=== PATIENT | female | born 1940 | race Caucasian/White ===

== ENCOUNTER 2017-08-20 18:51 | Inpatient (IN) | payer MEDICARE ==
[2017-08-20 18:52] VITALS: BMI 21.7
[2017-08-20] MEDS ORDERED: Aspirin 325 mg EC Tablets PO STA (19:34)
--- NOTE | 2017-08-20 19:34 | C.PDOC ---
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 Patient reports it is non-radiating associated with shortness of breath and nausea. Patient denies vomiting, diaphoresis, palpitations, lower extremity swelling, or other complaints. Chief Complaint (Nursing): Chest Pain History Per: Patient History/Exam Limitations: no limitations Onset/Duration Of Symptoms: Hrs Current Symptoms Are (Timing): Still Present Associated Symptoms: Nausea Modifying Factors: None Exacerbating Factors: None Alleviating Factors: None Recent travel outside of the [place]: No Past Medical History Reviewed: Historical Data, Nursing Documentation, Vital Signs Vital Signs: Last Vital Signs Temp 98.6 F 08/20/17 23:00 Pulse 66 08/20/17 23:00 Resp 18 08/20/17 23:00 BP 134/54 L 08/20/17 23:00 Pulse Ox 100 08/20/17 23:00 - Medical History PMH: Arthritis, Diabetes (type 2), HTN, Pneumonia (on going pneumonia) Denies: Atrial Fibrillation (DENIES), Chronic Kidney Disease - [facility] Procedures EXCISION OF LEFT BREAST, OPEN APPROACH, DIAGNOSTIC (03/06/16) RESECTION OF LEFT BREAST, OPEN APPROACH (03/06/16) Family History: States: Unknown Family Hx - Social History Hx Tobacco Use: No Hx Alcohol Use: No Hx Substance Use: No - Immunization History Hx Tetanus Toxoid Vaccination: No Hx Influenza Vaccination: No Hx Pneumococcal Vaccination: No Review Of Systems Constitutional: Negative for: Fever Cardiovascular: Positive for: Chest Pain (mid-sternal). Negative for: Palpitations Respiratory: Positive for: Shortness of Breath Gastrointestinal: Positive for: Nausea. Negative for: Vomiting Genitourinary: Negative for: Frequency Musculoskeletal: Negative for: Neck Pain Neurological: Negative for: Weakness, Numbness Physical Exam - Physical Exam Appears: Well, Non-toxic, No Acute Distress Skin: Normal Color, Warm, Dry Head: Atraumatic, Normacephalic Eye(s): bilateral: Normal Inspection, PERRL, EOMI Oral Mucosa: Moist Throat: Normal, No Erythema, No Exudate Neck: Normal ROM, Supple Chest: No Tenderness Cardiovascular: Rhythm Regular, No Murmur Respiratory: No Decreased Breath Sounds, No Rales, No Rhonchi, No Wheezing Gastrointestinal/Abdominal: Bowel Sounds (active), Soft, No Tenderness, No Distention, No Guarding, No Rebound Extremity: Normal ROM, No Tenderness, No Pedal Edema, No Swelling Pulses: Left Dorsalis Pedis: Normal, Right Dorsalis Pedis: Normal Neurological/Psych: Oriented x3, Normal Speech, Normal Motor ED Course And Treatment - Laboratory Results Result Diagrams: 08/20/17 19:38 08/20/17 19:38 ECG: Interpreted By Me, Viewed By Me ECG Rhythm: Sinus Rhythm, Nonspecific Changes Rate From EC (LVH) O2 Sat by Pulse Oximetry: 99 (room air) Pulse Ox Interpretation: Normal Medical Decision Making Medical Decision Making: Impression: 76 y/o female who is febrile, c/o mid-sternal non-radiating chest pain since early today. Differential Diagnosis included but are not limited to: ACS vs. pneumonia vs. pulmonary embolism Plan: -- EKG -- CXR -- CT chest -- Aspirin, Nitoglycerin, and Morphine -- Reassess and disposition Progress Notes: CT Chest: IMPRESSION: 1. No definite CT evidence of pulmonary embolism. 2. Left chest wall lesion, indeterminate. Clinical correlation is needed. 3. Sclerotic lesions, indeterminate. Recommend bone scan. 4. Adrenal hypertrophy. Compare with prior examinations if available, otherwise consider MRI. 5. Incidental/non-acute findings are described above. Disposition - Disposition Disposition: HOSPITALIZED Disposition Time: 00:49 Condition: FAIR - Clinical Impression Clinical Impression: Chest pain - Scribe Statement The provider has reviewed the documentation as recorded by the Jeannette Alane Attestation: Gita Machado Attestation: All medical record entries made by the Ayushibcheryl were at my direction and personally dictated by me. I have reviewed the chart and agree that the record accurately reflects my personal performance of the history, physical exam, medical decision making, and the department course for this patient. I have also personally directed, reviewed, and agree with the discharge instructions and disposition.
[2017-08-20 19:43] LABS: BASO % 0.3 % (0.0-2.0); EOS % 0.2 % (0.0-4.0); HEMOGLOBIN 11.6 g/dL (11.0-16.0); LYMPH # 2.1 K/uL (1.0-4.3); LYMPH % 13.4 % (20.0-40.0); MEAN CELL VOLUME 89.1 fL (81.0-99.0); MEAN CORPUSCULAR HEMOGLOBIN 30.4 pg (27.0-31.0); MEAN CORPUSCULAR HGB CONC 34.1 g/dL (33.0-37.0); MEAN PLATELET VOLUME 7.2 fL (7.2-11.7); MONO # 1.7 K/uL (0.0-0.8); MONO % 10.7 % (0.0-10.0); NEUT # 12.1 K/uL (1.8-7.0); NEUT % 75.4 % (50.0-75.0); NRBC % 0.1 % (0.0-2.0); RBC 3.83 Mil/uL (3.80-5.20); RED CELL DISTRIBUTION WIDTH 12.3 % (11.5-14.5); WHITE BLOOD COUNT 16.1 K/uL (4.8-10.8)
[2017-08-20] MEDS ORDERED: Aspirin 325 mg EC Tablets PO ONE (19:47)
[2017-08-20] MEDS ORDERED: Morphine 4 MG/ML VIAL ONE (19:49)
[2017-08-20 19:56] LABS: INR 1.1
[2017-08-20 19:57] LABS: ALB/GLOB RATIO 0.9 (1.0-2.1); ALBUMIN 4.5 g/dL (3.5-5.0); ALT/SGPT 25 U/L (9-52); AST/SGOT 32 U/L (14-36); BLOOD UREA NITROGEN 11 mg/dL (7-17); CALCIUM 9.1 mg/dl (8.6-10.4); GFR AFRICAN-AMERICAN > 60; GFR NON-AFRICAN AMERICAN > 60
[2017-08-20 20:07] LABS: B-TYPE NATRIURETIC PEPTIDE 149 pg/mL (0-900)
[2017-08-20] MEDS ORDERED: DiphenhydrAMINE 50 mg/ml Inj IVP STA (20:14)
[2017-08-20] MEDS ORDERED: DiphenhydrAMINE 50 mg/ml Inj ONE (20:22)
[2017-08-20] MEDS ORDERED: Iodixanol 320 mg/ml 150 ml Bottle IV ONE (20:34)
--- NOTE | 2017-08-20 21:36 | CT ---
EXAM: CT Angiography Chest With Intravenous Contrast CLINICAL HISTORY: 76 years old, female; Signs and symptoms; Shortness of breath; Additional info: Chest pain TECHNIQUE: Axial computed tomographic angiography images of the chest with intravenous contrast using pulmonary embolism protocol. All CT scans at this facility use one or more dose reduction techniques, viz.: automated exposure control; ma/kV adjustment per patient size (including targeted exams where dose is matched to indication; i.e. head); or iterative reconstruction technique. MIP reconstructed images were created and reviewed. Coronal and sagittal reformatted images were created and reviewed. CONTRAST: 100 mL of [id number] administered intravenously. COMPARISON: No relevant prior studies available. FINDINGS: Limitations: Motion artifact - mild. Pulmonary arteries: No definite pulmonary embolism. Aorta: Mild atherosclerotic disease. No aneurysm. Lungs: Mild atelectasis/scarring. No consolidation. Pleural space: No significant effusion. No pneumothorax. Heart: [id number] cardiomegaly. No significant pericardial effusion. Mild coronary artery calcifications. Bones/joints: Sclerotic lesions within sternum, T5 vertebral body. No acute fracture. Soft tissues: LEFT mastectomy. 1.1 x 1.1 x 0.9 cm soft tissue lesion within left chest wall. Lymph nodes: No pathologically enlarged lymph nodes. Adrenals: Mild hypertrophy of adrenal glands, slightly nodular on left. IMPRESSION: 1. No definite CT evidence of pulmonary embolism. 2. Left chest wall lesion, indeterminate. Clinical correlation is needed. 3. Sclerotic lesions, indeterminate. Recommend bone scan. 4. Adrenal hypertrophy. Compare with prior examinations if available, otherwise consider MRI. 5. Incidental/non-acute findings are described above.
[2017-08-20] MEDS ORDERED: Oxycodone/Acetaminophen 5/325 mg Tab PO PRN (22:44)
[2017-08-20] MEDS ORDERED: Sodium Chloride 0.9% 1,000 ML ONE (23:31)
[2017-08-20] MEDS: Sodium Chloride 0.9% 1,000 ML IV SCH (23:33)
[2017-08-21 03:57] LABS: BASO % 0.2 % (0.0-2.0); HEMOGLOBIN 10.8 g/dL (11.0-16.0); LYMPH # 1.2 K/uL (1.0-4.3); LYMPH % 7.9 % (20.0-40.0); MEAN CELL VOLUME 90.1 fL (81.0-99.0); MEAN CORPUSCULAR HEMOGLOBIN 30.7 pg (27.0-31.0); MEAN CORPUSCULAR HGB CONC 34.1 g/dL (33.0-37.0); MEAN PLATELET VOLUME 7.3 fL (7.2-11.7); MONO # 0.3 K/uL (0.0-0.8); MONO % 1.8 % (0.0-10.0); NEUT # 13.9 K/uL (1.8-7.0); NEUT % 90.1 % (50.0-75.0); PLATELET COUNT 376 K/uL (130-400); RBC 3.52 Mil/uL (3.80-5.20); RED CELL DISTRIBUTION WIDTH 12.4 % (11.5-14.5); WHITE BLOOD COUNT 15.4 K/uL (4.8-10.8)
[2017-08-21 04:12] LABS: ALB/GLOB RATIO 0.9 (1.0-2.1); ALBUMIN 4.1 g/dL (3.5-5.0); ALT/SGPT 25 U/L (9-52); AST/SGOT 24 U/L (14-36); BLOOD UREA NITROGEN 15 mg/dL (7-17); CALCIUM 8.8 mg/dl (8.6-10.4); GFR AFRICAN-AMERICAN > 60; GFR NON-AFRICAN AMERICAN 54; HDL CHOLESTEROL 61 mg/dL (30-70)
[2017-08-21 04:20] LABS: LDL CHOLESTEROL < 30 mg/dL (0-129)
[2017-08-21 05:47] LABS: BANDS 2 % (0-2); LYMPHOCYTE 6 % (20-40); MONOCYTE 4 % (0-10); NEUTROPHIL 88 % (50-75); PLATELET ESTIMATE NORMAL (NORMAL); TOTAL CELLS COUNTED 100
[2017-08-21] MEDS: (Novolog) Insulin Aspart, Recombinant 100 u/ml 10 ml vial SC SCH ×4 (08:09→22:44)
[2017-08-21 08:12] LABS: URINE BILIRUBIN NEGATIVE (NEGATIVE); URINE BLOOD 1+ (NEGATIVE); URINE CLARITY Clear (Clear); URINE COLOR Yellow (YELLOW); URINE GLUCOSE (UA) 1+ mg/dL (Normal); URINE LEUKOCYTE ESTERASE NEG Leu/uL (Negative); URINE NITRATE NEGATIVE (NEGATIVE); URINE PROTEIN 2+ mg/dL (NEGATIVE); URINE UROBILINOGEN NORMAL mg/dL (0.2-1.0)
[2017-08-21] MEDS ORDERED: (Novolog) Insulin Aspart, Recombinant 100 u/ml 10 ml vial ONE ×2 (08:14→14:06)
--- NOTE | 2017-08-21 08:35 | RAD ---
PROCEDURE: CHEST RADIOGRAPH, 1 VIEW HISTORY: chest pain COMPARISON: Chest radiograph dated 04/12/2016. FINDINGS: LUNGS: Bibasilar scarring. Clear. PLEURA: No pneumothorax or pleural fluid seen. CARDIOVASCULAR: Atherosclerotic aortic calcifications. Cardiomediastinal silhouette stably enlarged. OSSEOUS STRUCTURES: Old left-sided rib fractures Unchanged. VISUALIZED UPPER ABDOMEN: Normal. OTHER FINDINGS: Left axillary surgical clips redemonstrated. IMPRESSION: No active disease.
[2017-08-21 08:45] LABS: OSMOLALITY,URINE 362 mosm/kg (300-1000)
[2017-08-21] MEDS: Enoxaparin 40 mg Syringe SC SCH (10:18)
[2017-08-21] MEDS: Sodium Chloride 0.9% 1,000 ML IV SCH (16:10)
--- NOTE | 2017-08-21 22:37 | CP.PCM.CON ---
History of Present Illness - History of Present Illness History of Present Illness: 76 year old female with a history of DM, HTN, HL, stage IV breast cancer (ER/PA positive, HER2 negative) with lymph node and bone metastasis dx 02/2016 s/p left sided mastectomy on hormonal therapy (anastrozole 1mg daily), admitted with chest pain. She notes to aching chest pain over her chest shortly after having a meal. The pain was not relieved with Tylenol and her family brought her to the hospital. In the hospital she was given Toradol and notes to resolution of her pain. A CT angio of the chest was negative for PE. Other findings included a 1cm chest wall lesion, sclerotic bone lesions, and adrenal gland thickening. She currently has no more chest pain and reports to feeling well. Past medical history: DM, HTN, HL, breast cancer Past surgical history: left sided mastectomy, detached retina repair Family history: Denies hematologic and oncologic problems Social history: Denies tobacco, alcohol, and illicit drug use. Allergies: NKDA Review of systems: All remaining review of systems including HEENT, cardiovacular, respiratory, gastrointestinal, genitourinary, musculoskeletal, dermatologic, neurologic, and psychiatric are negative unless mentioned in the HPI. Past Patient History - Infectious Disease Hx of Infectious Diseases: None - Tetanus Immunizations Tetanus Immunization: Unknown - Past Medical History & Family History Past Medical History?: Yes - Past Social History Smoking Status: Never Smoked - CARDIAC Hx Atrial Fibrillation: No (DENIES) Hx Hypertension: Yes - PULMONARY Hx Pneumonia: Yes (on going pneumonia) - NEUROLOGICAL Hx Neurological Disorder: No - HEENT Hx HEENT Problems: No Other/Comment: Left eye impairment - previous retina surgery in 2009 - RENAL Hx Chronic Kidney Disease: No - ENDOCRINE/METABOLIC Hx Endocrine Disorders: Yes Hx Diabetes Mellitus Type 2: Yes - HEMATOLOGICAL/ONCOLOGICAL Hx Blood Disorders: No Hx Cancer: Yes (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.) Hx Metastesis: Yes - INTEGUMENTARY Hx Dermatological Problems: No Hx Cellulitis: Yes (PECANCER SURGERY) - MUSCULOSKELETAL/RHEUMATOLOGICAL Hx Falls: No - GASTROINTESTINAL Hx Gastrointestinal Disorders: No - GENITOURINARY/GYNECOLOGICAL Hx Genitourinary Disorders: No - PSYCHIATRIC Hx Substance Use: No - SURGICAL HISTORY Hx Surgeries: Yes Hx Eye Surgery: Yes (Retina Surgery 2009) Hx Mastectomy: Yes (left breast a month ago [facility]) Other/Comment: eye surgery for retinal detachment - ANESTHESIA Hx Anesthesia: Yes Hx Anesthesia Reactions: No Hx Malignant Hyperthermia: No Meds Allergies/Adverse Reactions: Allergies Allergy/AdvReac Type Severity Reaction Status Date / Time oxycodone [From Percocet] Allergy RASH Verified 08/20/17 20:00 shellfish derived Allergy ANAPHYLAXIS Verified 08/20/17 18:57 - Medications Medications: Current Medications Amlodipine Besylate (Norvasc) 5 mg PO DAILY [facility] Last Admin: 08/21/17 10:19 Dose: 5 mg Docusate Sodium (Colace) 100 mg PO BID PRN PRN Reason: Constipation Enoxaparin Sodium (Lovenox) 40 mg SC DAILY [facility] Last Admin: 08/21/17 10:18 Dose: 40 mg Sodium Chloride (Sodium Chloride 0.9%) 1,000 mls @ 60 mls/hr IV .[id number] [facility] Last Admin: 08/21/17 16:10 Dose: 60 mls/hr Insulin Aspart (Novolog) 0 unit SC ACHS [facility] PRN Reason: Protocol Last Admin: 08/21/17 17:25 Dose: 1 unit Lisinopril (Zestril) 20 mg PO DAILY [facility] Last Admin: 08/21/17 10:19 Dose: 20 mg Metoprolol Tartrate (Lopressor) 25 mg PO DAILY [facility] Last Admin: 08/21/17 10:17 Dose: 25 mg Oxycodone/Acetaminophen (Percocet 5/325 Mg Tab) 1 tab PO Q4H PRN PRN Reason: Pain, moderate (4-7) Stop: 08/23/17 22:45 Rosuvastatin Calcium (Crestor) 5 mg PO [facility] Last Admin: 08/21/17 21:34 Dose: 5 mg Physical Exam - Head Exam Head Exam: ATRAUMATIC - Eye Exam Eye Exam: Normal appearance - ENT Exam ENT Exam: Mucous Membranes Dry - Respiratory Exam Respiratory Exam: NORMAL BREATHING PATTERN - Cardiovascular Exam Cardiovascular Exam: +S1, +S2 - GI/Abdominal Exam GI & Abdominal Exam: Normal Bowel Sounds - Extremities Exam Extremities exam: Positive for: normal inspection - Neurological Exam Neurological exam: Oriented x3 - Psychiatric Exam Psychiatric exam: Normal Affect, Normal Mood - Skin Skin Exam: Warm Results - Vital Signs Recent Vital Signs: Last Vital Signs Temp 98.2 F 08/21/17 19:58 Pulse 78 08/21/17 18:00 Resp 17 03/04/18 16:44 BP 151/76 H 08/21/17 16:44 Pulse Ox 99 08/21/17 16:44 - Labs Result Diagrams: 08/21/17 03:53 08/21/17 03:53 Labs: Laboratory Results - last 24 hr 08/21/17 08/21/17 08/21/17 03:53 03:53 03:53 WBC RBC Hgb Hct MCV MCH MCHC RDW Plt Count MPV Neut % (Auto) Lymph % (Auto) [place] % (Auto) Eos % (Auto) Baso % (Auto) Neut # (Auto) Lymph # (Auto) [place] # (Auto) Eos # (Auto) Baso # (Auto) Neutrophils % (Manual) Band Neutrophils % Lymphocytes % (Manual) Monocytes % (Manual) Platelet Estimate Sodium 124 L Potassium 4.4 Chloride 88 L Carbon Dioxide 25 Anion Gap 16 BUN 15 Creatinine 1.0 Est GFR ( Amer) > 60 Est GFR (Non-Af Amer) 54 POC Glucose (mg/dL) Random Glucose 281 H Hemoglobin A1c 7.1 H Serum Osmolality 272 Calcium 8.8 Total Bilirubin 0.9 AST 24 ALT 25 Alkaline Phosphatase 93 Troponin I < 0.0120 Total Protein 8.8 H Albumin 4.1 Globulin 4.7 H Albumin/Globulin Ratio 0.9 L Triglycerides 55 D Cholesterol 136 LDL Cholesterol Direct < 30 HDL Cholesterol 61 Urine Color Urine Clarity Urine pH Ur Specific [place] Urine Protein Urine Glucose (UA) Urine Ketones Urine Blood Urine Nitrate Urine Bilirubin Urine Urobilinogen Ur Leukocyte Esterase Urine WBC (Auto) Urine RBC (Auto) Urine Osmolality Ur Random Sodium 08/21/17 08/21/17 08/21/17 03:53 07:51 07:51 WBC 15.4 H RBC 3.52 L Hgb 10.8 L Hct 31.7 L MCV 90.1 MCH 30.7 MCHC 34.1 RDW 12.4 Plt Count 376 MPV 7.3 Neut % (Auto) 90.1 H Lymph % (Auto) 7.9 L [place] % (Auto) 1.8 Eos % (Auto) 0.0 Baso % (Auto) 0.2 Neut # (Auto) 13.9 H Lymph # (Auto) 1.2 [place] # (Auto) 0.3 Eos # (Auto) 0.0 Baso # (Auto) 0.0 Neutrophils % (Manual) 88 H Band Neutrophils % 2 Lymphocytes % (Manual) 6 L Monocytes % (Manual) 4 Platelet Estimate Normal Sodium Potassium Chloride Carbon Dioxide Anion Gap BUN Creatinine Est GFR ( Amer) Est GFR (Non-Af Amer) POC Glucose (mg/dL) Random Glucose Hemoglobin A1c Serum Osmolality Calcium Total Bilirubin AST ALT Alkaline Phosphatase Troponin I Total Protein Albumin Globulin Albumin/Globulin Ratio Triglycerides Cholesterol LDL Cholesterol Direct HDL Cholesterol Urine Color Yellow Urine Clarity Clear Urine pH 5.0 Ur Specific [place] 1.045 H Urine Protein 2+ H Urine Glucose (UA) 1+ Urine Ketones Negative Urine Blood 1+ H Urine Nitrate Negative Urine Bilirubin Negative Urine Urobilinogen Normal Ur Leukocyte Esterase Neg Urine WBC (Auto) 1 Urine RBC (Auto) 2 Urine Osmolality 362 Ur Random Sodium 15 08/21/17 08/21/17 08/21/17 08:02 12:05 17:18 WBC RBC Hgb Hct MCV MCH MCHC RDW Plt Count MPV Neut % (Auto) Lymph % (Auto) [place] % (Auto) Eos % (Auto) Baso % (Auto) Neut # (Auto) Lymph # (Auto) [place] # (Auto) Eos # (Auto) Baso # (Auto) Neutrophils % (Manual) Band Neutrophils % Lymphocytes % (Manual) Monocytes % (Manual) Platelet Estimate Sodium Potassium Chloride Carbon Dioxide Anion Gap BUN Creatinine Est GFR ( Amer) Est GFR (Non-Af Amer) POC Glucose (mg/dL) 231 H 261 H 194 H Random Glucose Hemoglobin A1c Serum Osmolality Calcium Total Bilirubin AST ALT Alkaline Phosphatase Troponin I Total Protein Albumin Globulin Albumin/Globulin Ratio Triglycerides Cholesterol LDL Cholesterol Direct HDL Cholesterol Urine Color Urine Clarity Urine pH Ur Specific [place] Urine Protein Urine Glucose (UA) Urine Ketones Urine Blood Urine Nitrate Urine Bilirubin Urine Urobilinogen Ur Leukocyte Esterase Urine WBC (Auto) Urine RBC (Auto) Urine Osmolality Ur Random Sodium 08/21/17 21:38 WBC RBC Hgb Hct MCV MCH MCHC RDW Plt Count MPV Neut % (Auto) Lymph % (Auto) [place] % (Auto) Eos % (Auto) Baso % (Auto) Neut # (Auto) Lymph # (Auto) [place] # (Auto) Eos # (Auto) Baso # (Auto) Neutrophils % (Manual) Band Neutrophils % Lymphocytes % (Manual) Monocytes % (Manual) Platelet Estimate Sodium Potassium Chloride Carbon Dioxide Anion Gap BUN Creatinine Est GFR ( Amer) Est GFR (Non-Af Amer) POC Glucose (mg/dL) 186 H Random Glucose Hemoglobin A1c Serum Osmolality Calcium Total Bilirubin AST ALT Alkaline Phosphatase Troponin I Total Protein Albumin Globulin Albumin/Globulin Ratio Triglycerides Cholesterol LDL Cholesterol Direct HDL Cholesterol Urine Color Urine Clarity Urine pH Ur Specific [place] Urine Protein Urine Glucose (UA) Urine Ketones Urine Blood Urine Nitrate Urine Bilirubin Urine Urobilinogen Ur Leukocyte Esterase Urine WBC (Auto) Urine RBC (Auto) Urine Osmolality Ur Random Sodium Assessment & Plan (1) Anemia Assessment and Plan: Chronic disease from malignancy no transfusion indication Status: Acute Priority: Medium (2) Breast cancer Assessment and Plan: stage IV; ER/PA positive, HER2 negative disease controlled on aromatase inhibitor if pain recurrs, will order outpatient PET CT scan to evaluate bone metastasis outpatient anastrozole 1mg daily and f/u Status: Acute Priority: High (3) Leukocytosis Assessment and Plan: to be seen by ID Thank you for this interesting consult. Status: Acute
--- NOTE | 2017-08-22 01:20 | CP.PCM.HP ---
History of Present Illness - History of Present Illness History of Present Illness: 76 years old female complaining of a sudden onset of a retrosternal chest pain, after eating lunch. She denies any SOB, nausea. The chest pain resolved after receiving Toradol. She is known to have a metastatic left breast cancer, currently on chemotherapy. She also has a NIDDM, a hypertension. Serum TNI was negative. ECG revealed an RSR with non specific ST-T change. CTA of the chest did not show any pulmonary embolism, but coronary calcifications, a 1 cm left chest wall mass. WBC was elevated with diffential shift to the left. Her serum Na+ was 124. Her UA did not reveal any UTI. Present on Admission - Present on Admission Any Indicators Present on Admission: No Review of Systems - Cardiovascular Cardiovascular: Chest Pain at Rest Past Patient History - Infectious Disease Hx of Infectious Diseases: None - Tetanus Immunizations Tetanus Immunization: Unknown - Past Medical History & Family History Past Medical History?: Yes - Past Social History Smoking Status: Never Smoked Alcohol: None Drugs: Denies Home Situation {Lives}: With Family Domestic Violence: Negative - CARDIAC Hx Atrial Fibrillation: No (DENIES) Hx Hypercholesterolemia: Yes Hx Hypertension: Yes - PULMONARY Hx Pneumonia: Yes (on going pneumonia) - NEUROLOGICAL Hx Neurological Disorder: No - HEENT Hx HEENT Problems: No Other/Comment: Left eye impairment - previous retina surgery in 2009 - RENAL Hx Chronic Kidney Disease: No - ENDOCRINE/METABOLIC Hx Endocrine Disorders: Yes Hx Diabetes Mellitus Type 2: Yes - HEMATOLOGICAL/ONCOLOGICAL Hx Blood Disorders: No Hx Cancer: Yes (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.) Hx Metastesis: Yes - INTEGUMENTARY Hx Dermatological Problems: No Hx Cellulitis: Yes (PECANCER SURGERY) - MUSCULOSKELETAL/RHEUMATOLOGICAL Hx Falls: No - GASTROINTESTINAL Hx Gastrointestinal Disorders: No - GENITOURINARY/GYNECOLOGICAL Hx Genitourinary Disorders: No - PSYCHIATRIC Hx Substance Use: No - SURGICAL HISTORY Hx Surgeries: Yes Hx Eye Surgery: Yes (Retina Surgery 2009) Hx Mastectomy: Yes (left breast in 2016 at [facility]) Other/Comment: eye surgery for retinal detachment - ANESTHESIA Hx Anesthesia: Yes Hx Anesthesia Reactions: No Hx Malignant Hyperthermia: No Meds Allergies/Adverse Reactions: Allergies Allergy/AdvReac Type Severity Reaction Status Date / Time oxycodone [From Percocet] Allergy RASH Verified 08/20/17 20:00 shellfish derived Allergy ANAPHYLAXIS Verified 08/20/17 18:57 Physical Exam - Constitutional Appears: No Acute Distress - Head Exam Head Exam: NORMAL INSPECTION - Eye Exam Eye Exam: Normal appearance - ENT Exam ENT Exam: Normal Exam - Neck Exam Neck exam: Positive for: Normal Inspection - Respiratory Exam Respiratory Exam: Clear to Auscultation Bilateral, NORMAL BREATHING PATTERN - Cardiovascular Exam Cardiovascular Exam: REGULAR RHYTHM - GI/Abdominal Exam GI & Abdominal Exam: Normal Bowel Sounds, Soft - Rectal Exam Rectal Exam: Deferred - Extremities Exam Extremities exam: Positive for: normal inspection - Back Exam Back exam: NORMAL INSPECTION - Neurological Exam Neurological exam: Alert, Oriented x3 - Psychiatric Exam Psychiatric exam: Anxious - Skin Skin Exam: Dry, Intact, Normal Color Results - Vital Signs Recent Vital Signs: Last Vital Signs Temp 98 F 08/21/17 23:59 Pulse 87 08/22/17 00:24 Resp 13 08/22/17 00:00 BP 135/61 08/21/17 23:57 Pulse Ox 98 08/22/17 00:00 - Labs Result Diagrams: 08/21/17 03:53 08/21/17 03:53 Labs: Laboratory Results - last 24 hr 08/21/17 08/21/17 08/21/17 03:53 03:53 03:53 WBC RBC Hgb Hct MCV MCH MCHC RDW Plt Count MPV Neut % (Auto) Lymph % (Auto) [place] % (Auto) Eos % (Auto) Baso % (Auto) Neut # (Auto) Lymph # (Auto) [place] # (Auto) Eos # (Auto) Baso # (Auto) Neutrophils % (Manual) Band Neutrophils % Lymphocytes % (Manual) Monocytes % (Manual) Platelet Estimate Sodium 124 L Potassium 4.4 Chloride 88 L Carbon Dioxide 25 Anion Gap 16 BUN 15 Creatinine 1.0 Est GFR ( Amer) > 60 Est GFR (Non-Af Amer) 54 POC Glucose (mg/dL) Random Glucose 281 H Hemoglobin A1c 7.1 H Serum Osmolality 272 Calcium 8.8 Total Bilirubin 0.9 AST 24 ALT 25 Alkaline Phosphatase 93 Troponin I < 0.0120 Total Protein 8.8 H Albumin 4.1 Globulin 4.7 H Albumin/Globulin Ratio 0.9 L Triglycerides 55 D Cholesterol 136 LDL Cholesterol Direct < 30 HDL Cholesterol 61 Urine Color Urine Clarity Urine pH Ur Specific [place] Urine Protein Urine Glucose (UA) Urine Ketones Urine Blood Urine Nitrate Urine Bilirubin Urine Urobilinogen Ur Leukocyte Esterase Urine WBC (Auto) Urine RBC (Auto) Urine Osmolality Ur Random Sodium 08/21/17 08/21/17 08/21/17 03:53 07:51 07:51 WBC 15.4 H RBC 3.52 L Hgb 10.8 L Hct 31.7 L MCV 90.1 MCH 30.7 MCHC 34.1 RDW 12.4 Plt Count 376 MPV 7.3 Neut % (Auto) 90.1 H Lymph % (Auto) 7.9 L [place] % (Auto) 1.8 Eos % (Auto) 0.0 Baso % (Auto) 0.2 Neut # (Auto) 13.9 H Lymph # (Auto) 1.2 [place] # (Auto) 0.3 Eos # (Auto) 0.0 Baso # (Auto) 0.0 Neutrophils % (Manual) 88 H Band Neutrophils % 2 Lymphocytes % (Manual) 6 L Monocytes % (Manual) 4 Platelet Estimate Normal Sodium Potassium Chloride Carbon Dioxide Anion Gap BUN Creatinine Est GFR ( Amer) Est GFR (Non-Af Amer) POC Glucose (mg/dL) Random Glucose Hemoglobin A1c Serum Osmolality Calcium Total Bilirubin AST ALT Alkaline Phosphatase Troponin I Total Protein Albumin Globulin Albumin/Globulin Ratio Triglycerides Cholesterol LDL Cholesterol Direct HDL Cholesterol Urine Color Yellow Urine Clarity Clear Urine pH 5.0 Ur Specific [place] 1.045 H Urine Protein 2+ H Urine Glucose (UA) 1+ Urine Ketones Negative Urine Blood 1+ H Urine Nitrate Negative Urine Bilirubin Negative Urine Urobilinogen Normal Ur Leukocyte Esterase Neg Urine WBC (Auto) 1 Urine RBC (Auto) 2 Urine Osmolality 362 Ur Random Sodium 15 08/21/17 08/21/17 08/21/17 08:02 12:05 17:18 WBC RBC Hgb Hct MCV MCH MCHC RDW Plt Count MPV Neut % (Auto) Lymph % (Auto) [place] % (Auto) Eos % (Auto) Baso % (Auto) Neut # (Auto) Lymph # (Auto) [place] # (Auto) Eos # (Auto) Baso # (Auto) Neutrophils % (Manual) Band Neutrophils % Lymphocytes % (Manual) Monocytes % (Manual) Platelet Estimate Sodium Potassium Chloride Carbon Dioxide Anion Gap BUN Creatinine Est GFR ( Amer) Est GFR (Non-Af Amer) POC Glucose (mg/dL) 231 H 261 H 194 H Random Glucose Hemoglobin A1c Serum Osmolality Calcium Total Bilirubin AST ALT Alkaline Phosphatase Troponin I Total Protein Albumin Globulin Albumin/Globulin Ratio Triglycerides Cholesterol LDL Cholesterol Direct HDL Cholesterol Urine Color Urine Clarity Urine pH Ur Specific [place] Urine Protein Urine Glucose (UA) Urine Ketones Urine Blood Urine Nitrate Urine Bilirubin Urine Urobilinogen Ur Leukocyte Esterase Urine WBC (Auto) Urine RBC (Auto) Urine Osmolality Ur Random Sodium 08/21/17 21:38 WBC RBC Hgb Hct MCV MCH MCHC RDW Plt Count MPV Neut % (Auto) Lymph % (Auto) [place] % (Auto) Eos % (Auto) Baso % (Auto) Neut # (Auto) Lymph # (Auto) [place] # (Auto) Eos # (Auto) Baso # (Auto) Neutrophils % (Manual) Band Neutrophils % Lymphocytes % (Manual) Monocytes % (Manual) Platelet Estimate Sodium Potassium Chloride Carbon Dioxide Anion Gap BUN Creatinine Est GFR ( Amer) Est GFR (Non-Af Amer) POC Glucose (mg/dL) 186 H Random Glucose Hemoglobin A1c Serum Osmolality Calcium Total Bilirubin AST ALT Alkaline Phosphatase Troponin I Total Protein Albumin Globulin Albumin/Globulin Ratio Triglycerides Cholesterol LDL Cholesterol Direct HDL Cholesterol Urine Color Urine Clarity Urine pH Ur Specific [place] Urine Protein Urine Glucose (UA) Urine Ketones Urine Blood Urine Nitrate Urine Bilirubin Urine Urobilinogen Ur Leukocyte Esterase Urine WBC (Auto) Urine RBC (Auto) Urine Osmolality Ur Random Sodium Assessment & Plan (1) Chest pain Assessment and Plan: R/O ACS. To monitor on telemetry with serial ECG's and cardiac enzymes. Will also get an Echocardiogram. Status: Acute (2) Leukocytosis Assessment and Plan: R/o infection. To get ID evaluation, blood and urine cultures. Status: Acute (3) Hyponatremia Assessment and Plan: r/o SIADH. To get urinr Na+, serum and urine osmolality. Start NS IV. Status: Acute (4) Chest wall mass Assessment and Plan: R/o left breast cancer metastasis. To ask Dr Conroy to evaluate. Status: Acute Decision To Admit - Pt Status Changed To: Hospital Disposition Of: Inpatient - Admit Certification Admit to Inpatient:: After my assessment, the patient will require hospitalization for at least two midnights. This is because of the severity of symptoms shown, intensity of services needed, and/or the medical risk in this patient being treated as an outpatient. - InPatient: Physician Admission Certification:: After my assessments, the patient requires hospitalization for at least 2 midnights. - . Bed Request Type: Telemetry Admitting Physician: Devan Meneses
[2017-08-22 03:08] LABS: URINE BILIRUBIN NEGATIVE (NEGATIVE); URINE BLOOD 1+ (NEGATIVE); URINE CLARITY Clear (Clear); URINE COLOR Colorless (YELLOW); URINE GLUCOSE (UA) 1+ mg/dL (Normal); URINE LEUKOCYTE ESTERASE NEG Leu/uL (Negative); URINE NITRATE NEGATIVE (NEGATIVE); URINE PROTEIN NEGATIVE (NEGATIVE); URINE UROBILINOGEN NORMAL mg/dL (0.2-1.0)
[2017-08-22 06:08] LABS: BASO # 0.1 K/uL (0.0-0.2); BASO % 0.3 % (0.0-2.0); HEMOGLOBIN 10.3 g/dL (11.0-16.0); LYMPH # 2.8 K/uL (1.0-4.3); LYMPH % 14.6 % (20.0-40.0); MEAN CELL VOLUME 89.7 fL (81.0-99.0); MEAN CORPUSCULAR HEMOGLOBIN 31.1 pg (27.0-31.0); MEAN CORPUSCULAR HGB CONC 34.7 g/dL (33.0-37.0); MEAN PLATELET VOLUME 7.9 fL (7.2-11.7); MONO # 1.9 K/uL (0.0-0.8); MONO % 10.1 % (0.0-10.0); NEUT # 14.3 K/uL (1.8-7.0); PLATELET COUNT 385 K/uL (130-400); RBC 3.32 Mil/uL (3.80-5.20); RED CELL DISTRIBUTION WIDTH 12.2 % (11.5-14.5); WHITE BLOOD COUNT 19.1 K/uL (4.8-10.8)
[2017-08-22 06:25] LABS: ALB/GLOB RATIO 0.9 (1.0-2.1); ALBUMIN 3.8 g/dL (3.5-5.0); ALT/SGPT 23 U/L (9-52); AST/SGOT 16 U/L (14-36); BLOOD UREA NITROGEN 19 mg/dL (7-17); CALCIUM 8.8 mg/dl (8.6-10.4); GFR AFRICAN-AMERICAN > 60; GFR NON-AFRICAN AMERICAN > 60
[2017-08-22] MEDS: (Novolog) Insulin Aspart, Recombinant 100 u/ml 10 ml vial SC SCH ×4 (07:42→22:00)
[2017-08-22 08:24] LABS: LARGE PLATELETS PRESENT; LYMPHOCYTE 13 % (20-40); MONOCYTE 10 % (0-10); NEUTROPHIL 77 % (50-75); PLATELET ESTIMATE NORMAL (NORMAL); TOTAL CELLS COUNTED 100
[2017-08-22] MEDS: Sodium Chloride 0.9% 1,000 ML IV SCH (09:45)
[2017-08-22] MEDS: Enoxaparin 40 mg Syringe SC SCH (09:49)
--- NOTE | 2017-08-22 11:09 | CP.PCM.CON ---
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 She notes to aching chest pain over her chest shortly after having a meal. The pain was not relieved with Tylenol and her family brought her to the hospital. In the hospital she was given Toradol and notes to resolution of her pain. A CT angio of the chest was negative for PE. Other findings included a 1cm chest wall lesion, sclerotic bone lesions, and adrenal gland thickening. She currently has no more chest pain and reports to feeling well. Na initially 126 [address]I ruled out and CT chest negative for PE Initial hyponatremia treated with NS fluids; now [id number] Past medical history: DM, HTN, HL, breast cancer Past surgical history: left sided mastectomy, detached retina repair Family history: no CKD Social history: Denies tobacco, alcohol, and illicit drug use. Allergies: NKDA Review of systems: All remaining review of systems including HEENT, cardiovacular, respiratory, gastrointestinal, genitourinary, musculoskeletal, dermatologic, neurologic, and psychiatric are negative unless mentioned in the HPI. Review of Systems - Review of Systems All systems: reviewed and no additional remarkable complaints except - Cardiovascular Cardiovascular: Chest Pain at Rest - Gastrointestinal Gastrointestinal: Abdominal Pain, Dyspepsia Past Patient History - Infectious Disease Hx of Infectious Diseases: None - Tetanus Immunizations Tetanus Immunization: Unknown - Past Medical History & Family History Past Medical History?: Yes Past Family History: Reviewed and not pertinent - Past Social History Smoking Status: Never Smoked Chewing Tobacco Use: No Cigar Use: No Alcohol: None Drugs: Denies Home Situation {Lives}: With Family Domestic Violence: Negative - CARDIAC Hx Atrial Fibrillation: No (DENIES) Hx Hypercholesterolemia: Yes Hx Hypertension: Yes - PULMONARY Hx Pneumonia: Yes (on going pneumonia) - NEUROLOGICAL Hx Neurological Disorder: No - HEENT Hx HEENT Problems: No Other/Comment: Left eye impairment - previous retina surgery in 2009 - RENAL Hx Chronic Kidney Disease: No - ENDOCRINE/METABOLIC Hx Endocrine Disorders: Yes Hx Diabetes Mellitus Type 2: Yes - HEMATOLOGICAL/ONCOLOGICAL Hx Blood Disorders: No Hx Cancer: Yes (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.) Hx Metastesis: Yes - INTEGUMENTARY Hx Dermatological Problems: No Hx Cellulitis: Yes (PECANCER SURGERY) - MUSCULOSKELETAL/RHEUMATOLOGICAL Hx Falls: No - GASTROINTESTINAL Hx Gastrointestinal Disorders: No - GENITOURINARY/GYNECOLOGICAL Hx Genitourinary Disorders: No - PSYCHIATRIC Hx Substance Use: No - SURGICAL HISTORY Hx Surgeries: Yes Hx Eye Surgery: Yes (Retina Surgery 2009) Hx Mastectomy: Yes (left breast in 2016 at [facility]) Other/Comment: eye surgery for retinal detachment - ANESTHESIA Hx Anesthesia: Yes Hx Anesthesia Reactions: No Hx Malignant Hyperthermia: No Meds Allergies/Adverse Reactions: Allergies Allergy/AdvReac Type Severity Reaction Status Date / Time oxycodone [From Percocet] Allergy RASH Verified 08/20/17 20:00 shellfish derived Allergy ANAPHYLAXIS Verified 08/20/17 18:57 - Medications Medications: Current Medications Amlodipine Besylate (Norvasc) 5 mg PO DAILY [facility] Last Admin: 08/22/17 09:44 Dose: 5 mg Docusate Sodium (Colace) 100 mg PO BID PRN PRN Reason: Constipation Enoxaparin Sodium (Lovenox) 40 mg SC DAILY [facility] Last Admin: 08/22/17 09:49 Dose: Not Given Sodium Chloride (Sodium Chloride 0.9%) 1,000 mls @ 60 mls/hr IV .[id number] [facility] Last Admin: 08/22/17 09:45 Dose: 60 mls/hr Insulin Aspart (Novolog) 0 unit SC ACHS [facility] PRN Reason: Protocol Last Admin: 08/22/17 07:42 Dose: Not Given Lisinopril (Zestril) 20 mg PO DAILY [facility] Last Admin: 08/22/17 09:45 Dose: 20 mg Metoprolol Tartrate (Lopressor) 25 mg PO DAILY [facility] Last Admin: 08/22/17 09:43 Dose: 25 mg Oxycodone/Acetaminophen (Percocet 5/325 Mg Tab) 1 tab PO Q4H PRN PRN Reason: Pain, moderate (4-7) Stop: 08/23/17 22:45 Rosuvastatin Calcium (Crestor) 5 mg PO [facility] Last Admin: 08/21/17 21:34 Dose: 5 mg Physical Exam - Constitutional Appears: Well, Non-toxic, No Acute Distress - Head Exam Head Exam: ATRAUMATIC, NORMAL INSPECTION - Eye Exam Eye Exam: EOMI, Normal appearance - Neck Exam Neck exam: Positive for: Normal Inspection. Negative for: Tenderness - Respiratory Exam Respiratory Exam: Clear to Auscultation Bilateral, NORMAL BREATHING PATTERN - Cardiovascular Exam Cardiovascular Exam: REGULAR RHYTHM, +S1 - GI/Abdominal Exam GI & Abdominal Exam: Soft. absent: Tenderness - Extremities Exam Extremities exam: Positive for: normal inspection. Negative for: tenderness - Neurological Exam Neurological exam: CN II-XII Intact, Oriented x3 - Skin Skin Exam: Dry, Warm Results - Vital Signs Recent Vital Signs: Last Vital Signs Temp 97.3 F L 08/22/17 07:43 Pulse 72 08/22/17 07:45 Resp 15 08/22/17 07:45 BP 152/101 H 08/22/17 09:43 Pulse Ox 97 08/22/17 07:45 - Labs Result Diagrams: 08/22/17 06:02 08/22/17 06:02 Labs: Laboratory Results - last 24 hr 08/21/17 08/21/17 08/21/17 12:05 17:18 20:59 WBC RBC Hgb Hct MCV MCH MCHC RDW Plt Count MPV Neut % (Auto) Lymph % (Auto) [place] % (Auto) Eos % (Auto) Baso % (Auto) Neut # (Auto) Lymph # (Auto) [place] # (Auto) Eos # (Auto) Baso # (Auto) Neutrophils % (Manual) Lymphocytes % (Manual) Monocytes % (Manual) Platelet Estimate Large Platelets ESR Sodium Potassium Chloride Carbon Dioxide Anion Gap BUN Creatinine Est GFR ( Amer) Est GFR (Non-Af Amer) POC Glucose (mg/dL) 261 H 194 H Random Glucose Hemoglobin A1c Calcium Total Bilirubin AST ALT Alkaline Phosphatase C-React Prot High Sens Total Protein Albumin Globulin Albumin/Globulin Ratio Urine Color Colorless Urine Clarity Clear Urine pH 6.0 Ur Specific Max 1.004 Urine Protein Negative Urine Glucose (UA) 1+ Urine Ketones Negative Urine Blood 1+ H Urine Nitrate Negative Urine Bilirubin Negative Urine Urobilinogen Normal Ur Leukocyte Esterase Neg Urine WBC (Auto) 1 Urine RBC (Auto) 1 08/21/17 08/22/17 08/22/17 21:38 06:02 06:02 WBC 19.1 H RBC 3.32 L Hgb 10.3 L Hct 29.8 L MCV 89.7 MCH 31.1 H MCHC 34.7 RDW 12.2 Plt Count 385 MPV 7.9 Neut % (Auto) 75.0 Lymph % (Auto) 14.6 L [place] % (Auto) 10.1 H Eos % (Auto) 0.0 Baso % (Auto) 0.3 Neut # (Auto) 14.3 H Lymph # (Auto) 2.8 [place] # (Auto) 1.9 H Eos # (Auto) 0.0 Baso # (Auto) 0.1 Neutrophils % (Manual) 77 H Lymphocytes % (Manual) 13 L Monocytes % (Manual) 10 Platelet Estimate Normal Large Platelets Present ESR 111 H Sodium 139 Potassium 3.8 Chloride 99 Carbon Dioxide 26 Anion Gap 18 BUN 19 H Creatinine 0.9 Est GFR ( Amer) > 60 Est GFR (Non-Af Amer) > 60 POC Glucose (mg/dL) 186 H Random Glucose 135 H Hemoglobin A1c Calcium 8.8 Total Bilirubin 0.2 AST 16 ALT 23 Alkaline Phosphatase 77 C-React Prot High Sens Total Protein 7.8 Albumin 3.8 Globulin 4.0 H Albumin/Globulin Ratio 0.9 L Urine Color Urine Clarity Urine pH Ur Specific Max Urine Protein Urine Glucose (UA) Urine Ketones Urine Blood Urine Nitrate Urine Bilirubin Urine Urobilinogen Ur Leukocyte Esterase Urine WBC (Auto) Urine RBC (Auto) 08/22/17 08/22/17 08/22/17 06:02 06:02 07:38 WBC RBC Hgb Hct MCV MCH MCHC RDW Plt Count MPV Neut % (Auto) Lymph % (Auto) [place] % (Auto) Eos % (Auto) Baso % (Auto) Neut # (Auto) Lymph # (Auto) [place] # (Auto) Eos # (Auto) Baso # (Auto) Neutrophils % (Manual) Lymphocytes % (Manual) Monocytes % (Manual) Platelet Estimate Large Platelets ESR Sodium Potassium Chloride Carbon Dioxide Anion Gap BUN Creatinine Est GFR ( Amer) Est GFR (Non-Af Amer) POC Glucose (mg/dL) 137 H Random Glucose Hemoglobin A1c 7.1 H Calcium Total Bilirubin AST ALT Alkaline Phosphatase C-React Prot High Sens > 15.00 H Total Protein Albumin Globulin Albumin/Globulin Ratio Urine Color Urine Clarity Urine pH Ur Specific Max Urine Protein Urine Glucose (UA) Urine Ketones Urine Blood Urine Nitrate Urine Bilirubin Urine Urobilinogen Ur Leukocyte Esterase Urine WBC (Auto) Urine RBC (Auto) Assessment & Plan (1) SIADH (syndrome of inappropriate ADH production) Status: Acute (2) Chest pain at rest Status: Acute (3) Hyponatremia Status: Acute - Assessment and Plan (Free Text) Assessment: SIADH likely even though urine na only minimally elevated Hyponatremia corrected with NS fluids Plan: [place] oral fluid restriction Recheck urine parameters and uric acid level Can stop NS fluids now
[2017-08-22 17:48] LABS: OSMOLALITY,URINE 346 mosm/kg (300-1000)
--- NOTE | 2017-08-22 18:08 | CP.PCM.CON ---
History of Present Illness - History of Present Illness History of Present Illness: INFECTIOUS DISEASE CONSULATION JOSE NIEVES MD, FACP 6T [id number] 08/22/2017 CHART REVIEWED PT EXAMINED CASE DISCUSSED 76 year old female with a history of DM, HTN, HL, stage IV breast cancer with lymph node and bone metastasis dx 02/2016 s/p left sided mastectomy on hormonal therapy (anastrozole 1mg daily), admitted with chest pain. She notes to aching chest pain over her chest shortly after having a meal. The pain was not relieved with Tylenol and her family brought her to the hospital. In the hospital she was given Toradol and notes to resolution of her pain. A CT angio of the chest was negative for PE. Other findings included a 1cm chest wall lesion, sclerotic bone lesions, and adrenal gland thickening. She currently has no more chest pain and reports to feeling well. Na initially 126 AN INFECTIOUS DISEASE CONSULTATION WAS REQUESTED BECAUSE OF PROGRESSIVEW ELEVATIONS OF WBC-W/U ON GOING AMI ruled out and CT chest negative for PE Initial hyponatremia treated with NS fluids; now Kl=[phone] Past medical history: DM, HTN, HL, breast cancer 02/2016 Past surgical history: left sided mastectomy, detached retina repair Family history: no CKD Social history: Denies tobacco, alcohol, and illicit drug use. Allergies: NKDA Review of systems: All remaining review of systems including HEENT, cardiovacular, respiratory, gastrointestinal, genitourinary, musculoskeletal, dermatologic, neurologic, and psychiatric are negative unless mentioned in the HPI. VS: AWAKE AND ALERT ANXIOUS OVER HER CONDITION LUNGS CLEAR COR RR CHEST WALL LESION NOTED AND WORTH TAKING INTO CONSIDERATION ABD SOFT EXT THIN FRAGILE IMPRESSION: OCCULT INFECTION- CONSIDER STARTING TEFLARO INVIEW OF HER PROGRESSIVE WBC AND CHEST WALL ISSUE IF STABLE CONSIDER HOME TO [place], IF SHE RESPPONDS, SHE DOESNT WANT TO STAY. LET HER FOLLOW UP WITH ME MEDICALLY JOSE NIEVES MD, FACP INFECTIOUS DISEASE [employer]RA[employer]ED [employer] Past Patient History - Infectious Disease Hx of Infectious Diseases: None - Tetanus Immunizations Tetanus Immunization: Unknown - Past Medical History & Family History Past Medical History?: Yes Past Family History: Reviewed and not pertinent - Past Social History Smoking Status: Never Smoked Chewing Tobacco Use: No Cigar Use: No Alcohol: None Drugs: Denies Home Situation {Lives}: With Family Domestic Violence: Negative - CARDIAC Hx Atrial Fibrillation: No (DENIES) Hx Hypercholesterolemia: Yes Hx Hypertension: Yes - PULMONARY Hx Pneumonia: Yes (on going pneumonia) - NEUROLOGICAL Hx Neurological Disorder: No - HEENT Hx HEENT Problems: No Other/Comment: Left eye impairment - previous retina surgery in 2009 - RENAL Hx Chronic Kidney Disease: No - ENDOCRINE/METABOLIC Hx Endocrine Disorders: Yes Hx Diabetes Mellitus Type 2: Yes - HEMATOLOGICAL/ONCOLOGICAL Hx Blood Disorders: No Hx Cancer: Yes (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.) Hx Metastesis: Yes - INTEGUMENTARY Hx Dermatological Problems: No Hx Cellulitis: Yes (PECANCER SURGERY) - MUSCULOSKELETAL/RHEUMATOLOGICAL Hx Falls: No - GASTROINTESTINAL Hx Gastrointestinal Disorders: No - GENITOURINARY/GYNECOLOGICAL Hx Genitourinary Disorders: No - PSYCHIATRIC Hx Substance Use: No - SURGICAL HISTORY Hx Surgeries: Yes Hx Eye Surgery: Yes (Retina Surgery 2009) Hx Mastectomy: Yes (left breast in [address] [facility]) Other/Comment: eye surgery for retinal detachment - ANESTHESIA Hx Anesthesia: Yes Hx Anesthesia Reactions: No Hx Malignant Hyperthermia: No Meds Allergies/Adverse Reactions: Allergies Allergy/AdvReac Type Severity Reaction Status Date / Time oxycodone [From Percocet] Allergy RASH Verified 08/20/17 20:00 shellfish derived Allergy ANAPHYLAXIS Verified 08/20/17 18:57 - Medications Medications: Current Medications Amlodipine Besylate (Norvasc) 5 mg PO DAILY [facility] Last Admin: 08/22/17 09:44 Dose: 5 mg Docusate Sodium (Colace) 100 mg PO BID PRN PRN Reason: Constipation Enoxaparin Sodium (Lovenox) 40 mg SC DAILY [facility] Last Admin: 08/22/17 09:49 Dose: Not Given Sodium Chloride (Sodium Chloride 0.9%) 1,000 mls @ 60 mls/hr IV .[id number] [facility] Last Admin: 08/22/17 09:45 Dose: 60 mls/hr Ceftaroline Fosamil 600 mg/ (Sodium Chloride) 100 mls @ 100 mls/hr IVPB Q12H [facility] PRN Reason: Protocol Insulin Aspart (Novolog) 0 unit SC ACHS [facility] PRN Reason: Protocol Last Admin: 08/22/17 17:05 Dose: Not Given Lisinopril (Zestril) 20 mg PO DAILY [facility] Last Admin: 08/22/17 09:45 Dose: 20 mg Metoprolol Tartrate (Lopressor) 25 mg PO DAILY [facility] Last Admin: 08/22/17 09:43 Dose: 25 mg Oxycodone/Acetaminophen (Percocet 5/325 Mg Tab) 1 tab PO Q4H PRN PRN Reason: Pain, moderate (4-7) Stop: 08/23/17 22:45 Rosuvastatin Calcium (Crestor) 5 mg PO [facility] Last Admin: 08/21/17 21:34 Dose: 5 mg Results - Vital Signs Recent Vital Signs: Last Vital Signs Temp 97.8 F 08/22/17 16:00 Pulse 80 08/22/17 15:31 Resp 15 08/22/17 15:31 BP 135/78 08/22/17 15:31 Pulse Ox 99 08/22/17 12:00 - Labs Result Diagrams: 08/22/17 06:02 08/22/17 06:02 Labs: Laboratory Results - last 24 hr 08/21/17 08/21/17 08/21/17 17:18 20:59 21:38 WBC RBC Hgb Hct MCV MCH MCHC RDW Plt Count MPV Neut % (Auto) Lymph % (Auto) [place] % (Auto) Eos % (Auto) Baso % (Auto) Neut # (Auto) Lymph # (Auto) [place] # (Auto) Eos # (Auto) Baso # (Auto) Neutrophils % (Manual) Lymphocytes % (Manual) Monocytes % (Manual) Platelet Estimate Large Platelets ESR Sodium Potassium Chloride Carbon Dioxide Anion Gap BUN Creatinine Est GFR ( Amer) Est GFR (Non-Af Amer) POC Glucose (mg/dL) 194 H 186 H Random Glucose Hemoglobin A1c Calcium Total Bilirubin AST ALT Alkaline Phosphatase C-React Prot High Sens Total Protein Albumin Globulin Albumin/Globulin Ratio Procalcitonin Urine Color Colorless Urine Clarity Clear Urine pH 6.0 Ur Specific [place] 1.004 Urine Protein Negative Urine Glucose (UA) 1+ Urine Ketones Negative Urine Blood 1+ H Urine Nitrate Negative Urine Bilirubin Negative Urine Urobilinogen Normal Ur Leukocyte Esterase Neg Urine WBC (Auto) 1 Urine RBC (Auto) 1 Urine Osmolality Ur Random Sodium 08/22/17 08/22/17 08/22/17 06:02 06:02 06:02 WBC 19.1 H RBC 3.32 L Hgb 10.3 L Hct 29.8 L MCV 89.7 MCH 31.1 H MCHC 34.7 RDW 12.2 Plt Count 385 MPV 7.9 Neut % (Auto) 75.0 Lymph % (Auto) 14.6 L [place] % (Auto) 10.1 H Eos % (Auto) 0.0 Baso % (Auto) 0.3 Neut # (Auto) 14.3 H Lymph # (Auto) 2.8 [place] # (Auto) 1.9 H Eos # (Auto) 0.0 Baso # (Auto) 0.1 Neutrophils % (Manual) 77 H Lymphocytes % (Manual) 13 L Monocytes % (Manual) 10 Platelet Estimate Normal Large Platelets Present ESR 111 H Sodium 139 Potassium 3.8 Chloride 99 Carbon Dioxide 26 Anion Gap 18 BUN 19 H Creatinine 0.9 Est GFR ( Amer) > 60 Est GFR (Non-Af Amer) > 60 POC Glucose (mg/dL) Random Glucose 135 H Hemoglobin A1c Calcium 8.8 Total Bilirubin 0.2 AST 16 ALT 23 Alkaline Phosphatase 77 C-React Prot High Sens Total Protein 7.8 Albumin 3.8 Globulin 4.0 H Albumin/Globulin Ratio 0.9 L Procalcitonin 0.10 L Urine Color Urine Clarity Urine pH Ur Specific [place] Urine Protein Urine Glucose (UA) Urine Ketones Urine Blood Urine Nitrate Urine Bilirubin Urine Urobilinogen Ur Leukocyte Esterase Urine WBC (Auto) Urine RBC (Auto) Urine Osmolality Ur Random Sodium 08/22/17 08/22/17 08/22/17 06:02 06:02 07:38 WBC RBC Hgb Hct MCV MCH MCHC RDW Plt Count MPV Neut % (Auto) Lymph % (Auto) [place] % (Auto) Eos % (Auto) Baso % (Auto) Neut # (Auto) Lymph # (Auto) [place] # (Auto) Eos # (Auto) Baso # (Auto) Neutrophils % (Manual) Lymphocytes % (Manual) Monocytes % (Manual) Platelet Estimate Large Platelets ESR Sodium Potassium Chloride Carbon Dioxide Anion Gap BUN Creatinine Est GFR ( Amer) Est GFR (Non-Af Amer) POC Glucose (mg/dL) 137 H Random Glucose Hemoglobin A1c 7.1 H Calcium Total Bilirubin AST ALT Alkaline Phosphatase C-React Prot High Sens > 15.00 H Total Protein Albumin Globulin Albumin/Globulin Ratio Procalcitonin Urine Color Urine Clarity Urine pH Ur Specific [place] Urine Protein Urine Glucose (UA) Urine Ketones Urine Blood Urine Nitrate Urine Bilirubin Urine Urobilinogen Ur Leukocyte Esterase Urine WBC (Auto) Urine RBC (Auto) Urine Osmolality Ur Random Sodium 08/22/17 08/22/17 08/22/17 11:07 16:06 17:34 WBC RBC Hgb Hct MCV MCH MCHC RDW Plt Count MPV Neut % (Auto) Lymph % (Auto) [place] % (Auto) Eos % (Auto) Baso % (Auto) Neut # (Auto) Lymph # (Auto) [place] # (Auto) Eos # (Auto) Baso # (Auto) Neutrophils % (Manual) Lymphocytes % (Manual) Monocytes % (Manual) Platelet Estimate Large Platelets ESR Sodium Potassium Chloride Carbon Dioxide Anion Gap BUN Creatinine Est GFR ( Amer) Est GFR (Non-Af Amer) POC Glucose (mg/dL) 149 H 164 H Random Glucose Hemoglobin A1c Calcium Total Bilirubin AST ALT Alkaline Phosphatase C-React Prot High Sens Total Protein Albumin Globulin Albumin/Globulin Ratio Procalcitonin Urine Color Urine Clarity Urine pH Ur Specific [place] Urine Protein Urine Glucose (UA) Urine Ketones Urine Blood Urine Nitrate Urine Bilirubin Urine Urobilinogen Ur Leukocyte Esterase Urine WBC (Auto) Urine RBC (Auto) Urine Osmolality 346 Ur Random Sodium 121
[2017-08-22] MEDS: Ceftaroline 600 MG in Sodium Chloride 0.9% 100 ML IVPB SCH (18:45)
--- NOTE | 2017-08-22 19:22 | CP.PCM.PN ---
Subjective - Date & Time of Evaluation Date of Evaluation: 08/22/17 Time of Evaluation: 19:18 - Subjective Subjective: Patient has no complaint of chest pain, cough, sore throat, abdominal pain or burning micturation. Afebrile. Serum Na+: 139 WBC: 19,000. Blood and urine cultures: no growth. Echo: Normal LV systolic function with grade I diastolic dysfunction. Mild MR, TR with mild pulmonary hypertension. No pericardial effusion, no valvular vegetations. Patient was started on Ceftaroline IV by Dr Chand. Objective - Vital Signs/Intake and Output Vital Signs (last 24 hours): Temp Pulse Resp BP Pulse Ox 98.5 F 86 18 165/70 H 97 08/22/17 17:50 08/22/17 17:50 08/22/17 17:50 08/22/17 17:50 08/22/17 17:50 Intake and Output: 08/22/17 08/23/17 18:59 06:59 Intake Total 1100 Balance 1100 - Medications Medications: Current Medications Amlodipine Besylate (Norvasc) 5 mg PO DAILY [facility] Last Admin: 08/22/17 09:44 Dose: 5 mg Docusate Sodium (Colace) 100 mg PO BID PRN PRN Reason: Constipation Enoxaparin Sodium (Lovenox) 40 mg SC DAILY [facility] Last Admin: 08/22/17 09:49 Dose: Not Given Sodium Chloride (Sodium Chloride 0.9%) 1,000 mls @ 60 mls/hr IV .[id number] [facility] Last Admin: 08/22/17 09:45 Dose: 60 mls/hr Ceftaroline Fosamil 600 mg/ (Sodium Chloride) 100 mls @ 100 mls/hr IVPB Q12H [facility] PRN Reason: Protocol Last Admin: 08/22/17 18:45 Dose: 100 mls/hr Insulin Aspart (Novolog) 0 unit SC ACHS [facility] PRN Reason: Protocol Last Admin: 08/22/17 17:05 Dose: Not Given Lisinopril (Zestril) 20 mg PO DAILY [facility] Last Admin: 08/22/17 09:45 Dose: 20 mg Metoprolol Tartrate (Lopressor) 25 mg PO DAILY [facility] Last Admin: 08/22/17 09:43 Dose: 25 mg Oxycodone/Acetaminophen (Percocet 5/325 Mg Tab) 1 tab PO Q4H PRN PRN Reason: Pain, moderate (4-7) Stop: 08/23/17 22:45 Rosuvastatin Calcium (Crestor) 5 mg PO HS [facility] Last Admin: 08/21/17 21:34 Dose: 5 mg - Labs Labs: 08/22/17 06:02 08/22/17 06:02 PT 12.0 SECONDS (9.7-12.2) 08/20/17 19:38 INR 1.1 08/20/17 19:38 APTT 35 SECONDS (21-34) H 08/20/17 19:38 - Constitutional Appears: No Acute Distress - Head Exam Head Exam: NORMAL INSPECTION - Eye Exam Eye Exam: Normal appearance Pupil Exam: NORMAL ACCOMODATION - ENT Exam ENT Exam: Normal Exam - Neck Exam Neck Exam: Normal Inspection - Respiratory Exam Respiratory Exam: Clear to Ausculation Bilateral, NORMAL BREATHING PATTERN - Cardiovascular Exam Cardiovascular Exam: REGULAR RHYTHM, Murmur - GI/Abdominal Exam GI & Abdominal Exam: Soft, Normal Bowel Sounds - Rectal Exam Rectal Exam: Deferred - Extremities Exam Extremities Exam: Normal Inspection - Back Exam Back Exam: NORMAL INSPECTION - Neurological Exam Neurological Exam: Alert, Awake, Oriented x3 - Psychiatric Exam Psychiatric exam: Anxious - Skin Skin Exam: Dry, Intact, Normal Color, Warm Assessment and Plan (1) Chest pain Status: Resolved (2) Leukocytosis Assessment & Plan: Blood and urine cultures: No growth. Started on Ceftaroline 600 mg IV q [address] Chand. Status: Acute (3) Hyponatremia Status: Resolved (4) Chest wall mass Status: Chronic
--- NOTE | 2017-08-22 21:43 | CP.PCM.PN ---
Subjective - Date & Time of Evaluation Date of Evaluation: 08/22/17 Time of Evaluation: 20:10 - Subjective Subjective: No chest pain, feels well Started on antibiotics Objective - Vital Signs/Intake and Output Vital Signs (last 24 hours): Temp Pulse Resp BP Pulse Ox 98.5 F 86 18 165/70 H 97 08/22/17 17:50 08/22/17 17:50 08/22/17 17:50 08/22/17 17:50 08/22/17 17:50 Intake and Output: 08/22/17 08/23/17 18:59 06:59 Intake Total 1100 Balance 1100 - Medications Medications: Current Medications Amlodipine Besylate (Norvasc) 5 mg PO DAILY [facility] Last Admin: 08/22/17 09:44 Dose: 5 mg Docusate Sodium (Colace) 100 mg PO BID PRN PRN Reason: Constipation Enoxaparin Sodium (Lovenox) 40 mg SC DAILY [facility] Last Admin: 08/22/17 09:49 Dose: Not Given Sodium Chloride (Sodium Chloride 0.9%) 1,000 mls @ 60 mls/hr IV .[id number] [facility] Last Admin: 08/22/17 09:45 Dose: 60 mls/hr Ceftaroline Fosamil 600 mg/ (Sodium Chloride) 100 mls @ 100 mls/hr IVPB Q12H [facility] PRN Reason: Protocol Last Admin: 08/22/17 18:45 Dose: 100 mls/hr Insulin Aspart (Novolog) 0 unit SC ACHS [facility] PRN Reason: Protocol Last Admin: 08/22/17 17:05 Dose: Not Given Lisinopril (Zestril) 20 mg PO DAILY [facility] Last Admin: 08/22/17 09:45 Dose: 20 mg Metoprolol Tartrate (Lopressor) 25 mg PO DAILY [facility] Last Admin: 08/22/17 09:43 Dose: 25 mg Oxycodone/Acetaminophen (Percocet 5/325 Mg Tab) 1 tab PO Q4H PRN PRN Reason: Pain, moderate (4-7) Stop: 08/23/17 22:45 Rosuvastatin Calcium (Crestor) 5 mg PO HS [facility] Last Admin: 08/21/17 21:34 Dose: 5 mg - Labs Labs: 08/22/17 06:02 08/22/17 06:02 PT 12.0 SECONDS (9.7-12.2) 08/20/17 19:38 INR 1.1 08/20/17 19:38 APTT 35 SECONDS (21-34) H 08/20/17 19:38 - Head Exam Head Exam: ATRAUMATIC - Eye Exam Eye Exam: Normal appearance - ENT Exam ENT Exam: Mucous Membranes Dry - Respiratory Exam Respiratory Exam: NORMAL BREATHING PATTERN - Cardiovascular Exam Cardiovascular Exam: +S1, +S2 - GI/Abdominal Exam GI & Abdominal Exam: Normal Bowel Sounds Assessment and Plan (1) Anemia Assessment & Plan: anemia of chronic disease, bone mets Status: Acute (2) Breast cancer Assessment & Plan: stage IV on hormonal therapy outpatient f/u Status: Acute (3) Leukocytosis Assessment & Plan: on antibiotics Status: Acute
--- NOTE | 2017-08-22 22:45 | CARD ---
APPROVED REPORT EXAM: Two-dimensional and M-mode echocardiogram with Doppler and color Doppler. Other Information Quality : GoodRhythm : INDICATION Chest Pain FEVER, METASTATIC LEFT RISK FACTORS Diabetes 2D DIMENSIONS IVSd1.2 (0.7-1.1cm)LVDd3.7 (3.9-5.9cm) PWd1.0 (0.7-1.1cm)LVDs1.8 (2.5-4.0cm) FS (%) 52.0 %LVEF (%)83.8 (>50%) M-Mode DIMENSIONS RVDd1.72 (2.1-3.2cm)Left Atrium (MM)3.63 (2.5-4.0cm) IVSd1.20 (0.7-1.1cm)Aortic Root2.87 (2.2-3.7cm) LVDd4.49 (4.0-5.6cm)Aortic Cusp Exc.1.78 (1.5-2.0cm) PWd1.11 (0.7-1.1cm)FS (%) 49 % LVDs2.28 (2.0-3.8cm)LVEF (%)81 (>50%) Aortic Valve AI P 1/2 [id number] Mitral Valve MV E Kozhmdse77.3cm/sMV A Wxqlaxjc848.3cm/sE/A ratio0.8 TDI E/Lateral E'0.0E/Medial E'0.0 Tricuspid Valve TR Peak [id number]/sTR Peak [id number] LEFT VENTRICLE The left ventricle is normal size. There is mild concentric left ventricular hypertrophy. Left ventricle systolic function is normal. The Ejection Fraction is >70%. There is normal LV segmental wall motion. Tissue Doppler imaging reveals abnormal left ventricular diastolic dysfunction. RIGHT VENTRICLE The right ventricle is normal size. There is normal right ventricular wall thickness. The right ventricular systolic function is normal. ATRIA The left atrium size is normal. The right atrium size is normal. The interatrial septum is intact with no evidence for an atrial septal defect. AORTIC VALVE The aortic valve is normal in structure. No aortic regurgitation is present. There is no aortic valvular stenosis. There is no aortic valvular vegetation. MITRAL VALVE The mitral valve is normal in structure. There is no evidence of mitral valve prolapse. There is no mitral valve stenosis. Mitral regurgitation is trace to mild. TRICUSPID VALVE The tricuspid valve is normal in structure. There is moderate tricuspid regurgitation. Right ventricular systolic pressure is estimated at 50-60 mmHg. There is moderate pulmonary hypertension. PULMONIC VALVE The pulmonic valve is not well visualized. There is mild pulmonic valvular regurgitation. GREAT VESSELS The aortic root is normal in size. PERICARDIAL EFFUSION There is no significant pericardial effusion. <Conclusion> Left ventricle systolic function is normal. The Ejection Fraction is >70%. Diastolic dysfunction. No aortic regurgitation is present. Mitral regurgitation is trace to mild. There is moderate tricuspid regurgitation. There is moderate pulmonary hypertension. There is mild pulmonic valvular regurgitation.
[2017-08-23] MEDS: Sodium Chloride 0.9% 1,000 ML IV SCH (00:45)
[2017-08-23 03:55] VITALS: RESP 20
[2017-08-23] MEDS: Ceftaroline 600 MG in Sodium Chloride 0.9% 100 ML IVPB SCH (05:30)
[2017-08-23 07:29] LABS: BASO # 0.1 K/uL (0.0-0.2); BASO % 0.9 % (0.0-2.0); EOS # 0.1 K/uL (0.0-0.7); EOS % 0.7 % (0.0-4.0); HEMOGLOBIN 11.1 g/dL (11.0-16.0); LYMPH # 2.3 K/uL (1.0-4.3); LYMPH % 18.3 % (20.0-40.0); MEAN CELL VOLUME 90.3 fL (81.0-99.0); MEAN CORPUSCULAR HEMOGLOBIN 31.1 pg (27.0-31.0); MEAN CORPUSCULAR HGB CONC 34.4 g/dL (33.0-37.0); MEAN PLATELET VOLUME 7.4 fL (7.2-11.7); MONO # 1.2 K/uL (0.0-0.8); MONO % 9.7 % (0.0-10.0); NEUT % 70.4 % (50.0-75.0); RBC 3.57 Mil/uL (3.80-5.20); RED CELL DISTRIBUTION WIDTH 12.7 % (11.5-14.5); WHITE BLOOD COUNT 12.8 K/uL (4.8-10.8)
[2017-08-23 07:53] LABS: ALT/SGPT 19 U/L (9-52); AST/SGOT 17 U/L (14-36); BLOOD UREA NITROGEN 15 mg/dL (7-17); GFR AFRICAN-AMERICAN > 60; GFR NON-AFRICAN AMERICAN > 60
[2017-08-23] MEDS: (Novolog) Insulin Aspart, Recombinant 100 u/ml 10 ml vial SC SCH ×2 (08:27→12:33)
[2017-08-23 08:33] VITALS: O2SAT 99
[2017-08-23] MEDS: Enoxaparin 40 mg Syringe SC SCH (10:02)
--- NOTE | 2017-08-23 10:07 | CP.PCM.PN ---
Subjective - Date & Time of Evaluation Date of Evaluation: 08/23/17 Time of Evaluation: 10:06 - Subjective Subjective: seen and examined walking in room denies any f/c/sob/cp/n/v/d/rash/dizziness/headache Labs reviewed, discussed w/ pt and son Objective - Vital Signs/Intake and Output Vital Signs (last 24 hours): Temp Pulse Resp BP Pulse Ox 98.7 F 78 20 167/79 H 99 08/23/17 08:30 08/23/17 08:30 08/23/17 08:30 08/23/17 08:30 08/23/17 08:30 Intake and Output: 08/23/17 08/23/17 06:59 18:59 Intake Total 520 Balance 520 - Medications Medications: Current Medications Amlodipine Besylate (Norvasc) 5 mg PO DAILY [facility] Last Admin: 08/22/17 09:44 Dose: 5 mg Docusate Sodium (Colace) 100 mg PO BID PRN PRN Reason: Constipation Enoxaparin Sodium (Lovenox) 40 mg SC DAILY [facility] Last Admin: 08/22/17 09:49 Dose: Not Given Ceftaroline Fosamil 600 mg/ (Sodium Chloride) 100 mls @ 100 mls/hr IVPB Q12H [facility] PRN Reason: Protocol Last Admin: 08/23/17 05:30 Dose: 100 mls/hr Insulin Aspart (Novolog) 0 unit SC ACHS [facility] PRN Reason: Protocol Last Admin: 08/23/17 08:27 Dose: 1 unit Lisinopril (Zestril) 20 mg PO DAILY [facility] Last Admin: 08/22/17 09:45 Dose: 20 mg Metoprolol Tartrate (Lopressor) 25 mg PO DAILY [facility] Last Admin: 08/22/17 09:43 Dose: 25 mg Oxycodone/Acetaminophen (Percocet 5/325 Mg Tab) 1 tab PO Q4H PRN PRN Reason: Pain, moderate (4-7) Stop: 08/23/17 22:45 Rosuvastatin Calcium (Crestor) 5 mg PO HS [facility] Last Admin: 08/22/17 21:47 Dose: 5 mg - Labs Labs: 08/23/17 07:19 08/23/17 07:19 PT 12.0 SECONDS (9.7-12.2) 03/03/18 19:38 INR 1.1 08/20/17 19:38 APTT 35 SECONDS (21-34) H 08/20/17 19:38 - Constitutional Appears: Non-toxic, No Acute Distress, Chronically Ill - Head Exam Head Exam: NORMAL INSPECTION, NORMOCEPHALIC - Eye Exam Eye Exam: Normal appearance, PERRL - ENT Exam ENT Exam: Mucous Membranes Moist, Normal Exam - Neck Exam Neck Exam: Full ROM, Normal Inspection - Respiratory Exam Respiratory Exam: Clear to Ausculation Bilateral, NORMAL BREATHING PATTERN - Cardiovascular Exam Cardiovascular Exam: REGULAR RHYTHM, RRR - GI/Abdominal Exam GI & Abdominal Exam: Distended, Soft, Normal Bowel Sounds - Extremities Exam Extremities Exam: Full ROM, Normal Inspection - Neurological Exam Neurological Exam: Alert, Awake, CN II-XII Intact, Oriented x3 - Psychiatric Exam Psychiatric exam: Normal Affect, Normal Mood Assessment and Plan (1) Chest pain at rest Status: Acute (2) Leukocytosis Status: Acute (3) SIADH (syndrome of inappropriate ADH production) Status: Acute (4) Hyponatremia Status: Resolved - Assessment and Plan (Free Text) Assessment: resolved hyponatremia, likely siadh. maintain fluid restriction. recommend periodic labs outpt antibiotics / supportive care
[2017-08-23 11:40] VITALS: BP 145/72; TEMP 98
[2017-08-23 13:11] VITALS: PULSE 71
--- NOTE | 2017-08-24 19:33 | CP.PCM.DIS ---
Provider - Provider Date of Admission: 08/21/17 13:10 Attending physician: Devan Meneses MD Primary care physician: Devan Meneses M.D. Consults: Dr Maxine Conroy( Oncology), Dr Chand( Infectious Disease), Dr Vasques ( nephrology). Time Spent in preparation of Discharge (in minutes): 30 Diagnosis - Discharge Diagnosis (1) Chest pain Status: Resolved (2) Leukocytosis Status: Resolved (3) Hyponatremia Status: Resolved (4) Chest wall mass Status: Chronic Hospital Course - Lab Results Lab Results: Micro Results 08/22/17 Unknown Naris MRSA Culture - Final MRSA NOT DETECTED 08/21/17 03:45 Blood-Venous Blood Culture - Preliminary NO GROWTH AFTER 3 DAYS 08/21/17 Unknown Blood-Venous Blood Culture - Preliminary NO GROWTH AFTER 3 DAYS 08/21/17 21:00 Blood Blood Culture - Preliminary NO GROWTH AFTER 48 HOURS 08/21/17 21:30 Blood Blood Culture - Preliminary NO GROWTH AFTER 48 HOURS 08/21/17 09:00 Urine,Clean Catch Urine Culture - Final No Growth (<1,000 CFU/ML) 08/21/17 Unknown Nose MRSA Culture (Admit) - Final MRSA NOT DETECTED 08/21/17 07:57 Urine,Clean Catch Urine Culture - Final No Growth (<1,000 CFU/ML) Most Recent Lab Values WBC 12.8 K/uL (4.8-10.8) H 08/23/17 07:19 RBC 3.57 Mil/uL (3.80-5.20) L 08/23/17 07:19 Hgb 11.1 g/dL (11.0-16.0) 08/23/17 07:19 Hct 32.3 % (34.0-47.0) L 08/23/17 07:19 MCV 90.3 fL (81.0-99.0) 08/23/17 07:19 MCH 31.1 pg (27.0-31.0) H 08/23/17 07:19 MCHC 34.4 g/dL (33.0-37.0) 08/23/17 07:19 RDW 12.7 % (11.5-14.5) 08/23/17 07:19 Plt Count 448 K/uL (130-400) H 08/23/17 07:19 MPV 7.4 fL (7.2-11.7) 08/23/17 07:19 Neut % (Auto) 70.4 % (50.0-75.0) 08/23/17 07:19 Lymph % (Auto) 18.3 % (20.0-40.0) L 08/23/17 07:19 [place] % (Auto) 9.7 % (0.0-10.0) 08/23/17 07:19 Eos % (Auto) 0.7 % (0.0-4.0) 08/23/17 07:19 Baso % (Auto) 0.9 % (0.0-2.0) 08/23/17 07:19 Neut # (Auto) 9.0 K/uL (1.8-7.0) H 08/23/17 07:19 Lymph # (Auto) 2.3 K/uL (1.0-4.3) 08/23/17 07:19 [place] # (Auto) 1.2 K/uL (0.0-0.8) H 08/23/17 07:19 Eos # (Auto) 0.1 K/uL (0.0-0.7) 08/23/17 07:19 Baso # (Auto) 0.1 K/uL (0.0-0.2) 08/23/17 07:19 Neutrophils % (Manual) 77 % (50-75) H 08/22/17 06:02 Band Neutrophils % 2 % (0-2) 08/21/17 03:53 Lymphocytes % (Manual) 13 % (20-40) L 08/22/17 06:02 Monocytes % (Manual) 10 % (0-10) 08/22/17 06:02 Platelet Estimate Normal (NORMAL) 08/22/17 06:02 Large Platelets Present 08/22/17 06:02 ESR 111 mm/hr (0-20) H 08/22/17 06:02 LAP Score 143 (20-180) 08/23/17 07:19 PT 12.0 SECONDS (9.7-12.2) 08/20/17 19:38 INR 1.1 08/20/17 19:38 APTT 35 SECONDS (21-34) H 08/20/17 19:38 Sodium 137 mmol/L (132-148) 08/23/17 07:19 Potassium 4.1 mmol/L (3.6-5.2) 08/23/17 07:19 Chloride 99 mmol/L (98-107) 08/23/17 07:19 Carbon Dioxide 22 mmol/L (22-30) 08/23/17 07:19 Anion Gap 20 (10-20) 08/23/17 07:19 BUN 15 mg/dL (7-17) 08/23/17 07:19 Creatinine 0.8 mg/dL (0.7-1.2) 08/23/17 07:19 Est GFR ( Amer) > 60 08/23/17 07:19 Est GFR (Non-Af Amer) > 60 08/23/17 07:19 POC Glucose (mg/dL) 221 mg/dL (65-110) H 08/23/17 11:43 Random Glucose 154 mg/dL (65-105) H 08/23/17 07:19 Hemoglobin A1c 7.1 % (4.2-6.5) H 08/22/17 06:02 Serum Osmolality 272 mosm/kg (272-300) 08/21/17 03:53 Calcium 9.0 mg/dl (8.6-10.4) 08/23/17 07:19 Total Bilirubin 0.5 mg/dL (0.2-1.3) 08/23/17 07:19 AST 17 U/L (14-36) 08/23/17 07:19 ALT 19 U/L (9-52) 08/23/17 07:19 Alkaline Phosphatase 88 U/L (38-126) 08/23/17 07:19 Troponin I < 0.0120 ng/mL (0.00-0.120) 08/21/17 03:53 C-React Prot High Sens > 15.00 mg/L (1.00-3.00) H 08/22/17 06:02 NT-Pro-B Natriuret Pep 149 pg/mL (0-900) 08/20/17 19:38 Total Protein 8.2 g/dL (6.3-8.3) 08/23/17 07:19 Albumin 4.0 g/dL (3.5-5.0) 08/23/17 07:19 Globulin 4.2 gm/dL (2.2-3.9) H 08/23/17 07:19 Albumin/Globulin Ratio 1.0 (1.0-2.1) 08/23/17 07:19 Triglycerides 55 mg/dL (0-149) D 08/21/17 03:53 Cholesterol 136 mg/dL (0-199) 08/21/17 03:53 LDL Cholesterol Direct < 30 mg/dL (0-129) 08/21/17 03:53 HDL Cholesterol 61 mg/dL (30-70) 08/21/17 03:53 Procalcitonin 0.10 NG/ML (0.19-0.49) L 08/22/17 06:02 Urine Color Colorless (YELLOW) 08/21/17 20:59 Urine Clarity Clear (Clear) 08/21/17 20:59 Urine pH 6.0 (5.0-8.0) 08/21/17 20:59 Ur Specific [place] 1.004 (1.003-1.030) 08/21/17 20:59 Urine Protein Negative mg/dL (NEGATIVE) 08/21/17 20:59 Urine Glucose (UA) 1+ mg/dL (Normal) 08/21/17 20:59 Urine Ketones Negative mg/dL (NEGATIVE) 08/21/17 20:59 Urine Blood 1+ (NEGATIVE) H 08/21/17 20:59 Urine Nitrate Negative (NEGATIVE) 08/21/17 20:59 Urine Bilirubin Negative (NEGATIVE) 08/21/17 20:59 Urine Urobilinogen Normal mg/dL (0.2-1.0) 08/21/17 20:59 Ur Leukocyte Esterase Neg Sarah/uL (Negative) 08/21/17 20:59 Urine WBC (Auto) 1 /hpf (0-5) 08/21/17 20:59 Urine RBC (Auto) 1 /hpf (0-3) 08/21/17 20:59 Urine Osmolality 346 mosm/kg (300-1000) 08/22/17 17:34 Ur Random Sodium 121 mmol/L 08/22/17 17:34 - Hospital Course Hospital Course: 76 years old female was brought to the ED at [facility] complaining of a retrosternal chest pain after having lunch. The pain was not associated with shortness of breath, nausea, and without any radiation, any cough, but a low grade fever. In the ED she received IV Toradol with resolution of the pain. A CXR revealed a cardiomegaly and no infiltrate. A CT scan of the chest revealed no pulmonary embolism, a 1cm mass of the left chest wall. sclerotic lesions of the sternum and L5, mild coronary calcifications. Her WBC: 16,000 and serum Na+ : 126 urine Na+: 16. She is known to have a metastatic left breast cancer, a hypertension, a NIDDM, a hyperlipidemia. She was started on IV normal Saline. Blood and urine cultures showed no growth. An echocardiogram revealed normal LV , mild mitral and tricuspid regurgitation and a moderate pulmonary hypertension , no valvular vegetation. Serial serum TNI's were normal. Serial ECG's did not show any acute change. She was evaluated by Dr Conroy, her oncologist, who suggested a PET scan as an outpatient, by Dr Vasques, who diagnosed her as having SIADH, and by Dr Chand who started her on IV Ceftaroline 600 mg IV q 12h. She remained asymptomatic with no fever. Her serum Na+ improved to 139, and her WBC dropped to 12.7.She was discharged home on 08/23/2017 in stable condition. She was put on Doxycycline 100 mg PO BID for one week, and to have a follow-up with Dr Chand in one week. She was advised to resume all her home medications. - Date & Time of H&P Date of H&P: 08/22/17 Discharge Exam - Head Exam Head Exam: NORMAL INSPECTION, NORMOCEPHALIC - Eye Exam Eye Exam: Normal appearance - ENT Exam ENT Exam: Normal Exam - Neck Exam Neck exam: Normal Inspection - Respiratory Exam Respiratory Exam: Clear to PA & Lateral, NORMAL BREATHING PATTERN - Cardiovascular Exam Cardiovascular Exam: REGULAR RHYTHM, Systolic Murmur - GI/Abdominal Exam GI & Abdominal Exam: Normal Bowel Sounds, Unremarkable - Rectal Exam Rectal Exam: Deferred - Extremities Exam Extremities exam: normal inspection - Back Exam Back exam: NORMAL INSPECTION - Neurological Exam Neurological exam: Alert, Normal Gait, Oriented x3 - Psychiatric Exam Psychiatric exam: Anxious - Skin Skin Exam: Dry, Intact, Warm Discharge Plan - Discharge Medications Prescriptions: Doxycycline Monohydrate 100 mg PO BID 7 Days #14 capsule - Follow Up Plan Condition: FAIR Disposition: HOME/ ROUTINE Instructions: Heart Healthy Diet, Chest Pain (DC), Doxycycline Additional Instructions: Resume all home meds. To take Doxycycline 100 mg PO BID for a week and follow up with Dr Chand in one week. Referrals: Roge Chand MD [Staff Provider] - Devan Meneses MD [Staff Provider] -
--- NOTE | 2017-08-25 17:59 | CARD ---
APPROVED REPORT EKG Measurement Heart [id number] <Conclusion> Sinus rhythm with 1st degree AV block Nonspecific ST abnormality Abnormal ECG
--- NOTE | 2017-08-25 18:11 | CARD ---
APPROVED REPORT EKG Measurement Heart [id number] NM [id number] <Conclusion> Normal sinus rhythm Possible Left atrial enlargement Left ventricular hypertrophy Abnormal ECG
--- NOTE | 2017-08-25 18:16 | CARD ---
APPROVED REPORT EKG Measurement Heart [id number] NM [id number] <Conclusion> Normal sinus rhythm Voltage criteria for left ventricular hypertrophy Abnormal ECG
== END 2017-08-23 16:23 | disposition home or self-care (01) | DRG 313 ==
LOC: C.ER 18:51 → C.9E 22:06 → OBSVTOIN 08-21 13:10 → C.9I 08-21 14:51 → C.6T 08-22 17:41
PROVIDERS: ADMIT Internal Medicine Cardiovascular Disease; ATTEND Internal Medicine Cardiovascular Disease
DX: R07.89 Other chest pain (principal); C79.51 Secondary malignant neoplasm of bone; C77.9 Secondary and unspecified malignant neoplasm of lymph node, unspecified; E22.2 Syndrome of inappropriate secretion of antidiuretic hormone; E27.8 Other specified disorders of adrenal gland; C50.912 Malignant neoplasm of unspecified site of left female breast; D63.0 Anemia in neoplastic disease; D72.829 Elevated white blood cell count, unspecified; E11.9 Type 2 diabetes mellitus without complications; I10 Essential (primary) hypertension; M19.90 Unspecified osteoarthritis, unspecified site; Z79.4 Long term (current) use of insulin; E78.00 Pure hypercholesterolemia, unspecified; R22.2 Localized swelling, mass and lump, trunk; Z17.0 Estrogen receptor positive status [ER+]